=== PATIENT | male | born 1995 | race Two or more races ===

== ENCOUNTER 2025-02-17 23:37 | Emergency (ER) | payer OTHER ==
[~2025-02-17] VITALS: Ht 177.8 cm; Wt 77.1 kg
[2025-02-18] MEDS ORDERED: LIDOCAINE HCL 1% 10ML VIAL ONE ×2 (00:56→01:41)
[2025-02-18] MEDS ORDERED: POVIDONE-IODINE 118 ML BOTT TOP ONE (01:04)
[2025-02-18] MEDS ORDERED: LIDOCAINE HCL 1%/EPINEPHRINE 20ML VIAL IJ ONE (01:15)
[2025-02-18] MEDS ORDERED: CEFTRIAXONE SODIUM 2,000 MG VIAL ONE (01:41)
[2025-02-18] MEDS ORDERED: DIPHTH,PERTUSS(ACELL),TET VAC 0.5 ML SYRINGE IM ONE (01:42)
[2025-02-18] MEDS ORDERED: CIPRO500 MG PO (01:52)
[2025-02-18] MEDS ORDERED: CEFTRIAXONE SODIUM 2,000 MG VIAL IM ONE (02:00)
[2025-02-18] MEDS ORDERED: TETANUS & DIPHTHERIA TOX,ADULT 0.5 ML VIAL IM ONE (02:00)
== END 2025-02-18 02:30 | disposition home or self-care (01) ==
LOC: ER 02-18 01:00
DX: S81.812A Laceration without foreign body, left lower leg, initial encounter (principal); W26.0XXA Contact with knife, initial encounter; Y93.89 Activity, other specified; Y92.89 Other specified places as the place of occurrence of the external cause; Y99.9 Unspecified external cause status